=== PATIENT | female | born 1980 | race Caucasian/White ===

== ENCOUNTER 2017-02-09 16:48 | Emergency (ER) | payer BC ==
[~2017-02-09] VITALS: Ht 160 cm; Wt 65.9 kg
[~2017-02-09 16:48] MED LIST: Motrin PO
[2017-02-09 17:17] LABS: HEMATOCRIT 37.3 % (36.0-46.0); MCH 27.6 PG (29.0-34.0); MCV 83.8 FL (83-99); MEAN PLAT.VOLUME 10.3 uM^3 (9.5-12.4); PLATELET COUNT 263 K/uL (156-360); RBC DIS.WIDTH-CV 14.1 % (11.8-14.6); RBC DIS.WIDTH-SD 43.3 % (39-53); RED BLOOD COUNT 4.45 M/uL (3.80-5.20); WHITE BLOOD COUNT 10.1 K/uL (4.1-10.2)
[2017-02-09 17:26] LABS: CHLORIDE 104 mEq/L (99-109); POTASSIUM 3.7 mEq/L (3.7-5.4); SODIUM 139 mEq/L (136-147)
[2017-02-09 17:28] LABS: GLUCOSE 88 mg/dL (70-99)
[2017-02-09 17:29] LABS: ANION GAP 11 MEQ/L (2-14)
[2017-02-09 17:30] LABS: TOTAL BILIRUBIN 0.3 mg/dL (0.0-1.0)
[2017-02-09 17:32] LABS: ALKALINE PHOSPHATASE 67 IU/L (3-129); GFR ESTIMATE (CALCULATED) > 59 mL/min/
[2017-02-09 17:33] LABS: UREA NITROGEN (BUN) 11 mg/dL (9-23)
[2017-02-09 17:35] LABS: LIPASE 31 U/L (1.0-51.0)
[2017-02-09 17:41] LABS: QUANTITATIVE HCG < 4.0 MIU/ML
[2017-02-09 18:27] LABS: ADD MIUA? YES; BILIRUBIN NEGATIVE; BLOOD NEGATIVE; COLOR STRAW ((YELLOW)); GLUCOSE (STRIP) NEGATIVE; KETONES 20; LEUKOCYTES NEGATIVE; NITRITE NEGATIVE; PROTEIN (STRIP) NEGATIVE; SPECIFIC GRAVITY 1.013 (1.000-1.030); UROBILINOGEN 0.2 MG/DL (0.2-1.0)
[2017-02-09 18:31] LABS: BACTERIA NONE SEEN /HPF; CALCIUM OXALATE CRYSTALS 2+ /HPF; EPITHELIAL CELLS RARE /HPF; MUCUS TRACE /LPF; RED BLOOD CELLS 0-5 /HPF (0-5); UCUL ADDED? NO; WHITE BLOOD CELLS 0-5 /HPF (0-5)
[2017-02-09] MEDS ORDERED: MOTRIN600 MG PO (19:39)
[2017-02-09] MEDS ORDERED: TRAMADOL HCL50 MG PO (19:39)
[2017-02-09 19:50] VITALS: BP 139/69
== END 2017-02-09 19:51 | disposition home or self-care (01) ==
LOC: EME 16:48
DX: R10.31 Right lower quadrant pain (principal); Z88.2 Allergy status to sulfonamides
CPT/HCPCS: 74177; 80053; 81003; 83690; 84702; 85027; 99281; 99285; J7030